=== PATIENT | female | born 1980 | race Caucasian/White ===

== ENCOUNTER 2017-09-16 14:45 | Emergency (ER) | payer BC ==
[~2017-09-16] VITALS: Ht 157.5 cm; Wt 104.5 kg
[2017-09-16 14:47] VITALS: TEMP 98.1
[2017-09-16] MEDS ORDERED: PRENATAL1 TA7 PO (15:06)
[2017-09-16 15:13] LABS: BASO # 0.1 (0.0-0.2); BASO % 0.5 % (0.0-2.0); EOS # 0.1 (0.0-0.7); EOS % 0.7 % (0-4.0); GRAN # 14.5 (1.4-6.5); GRAN % 79.3 % (42.2-75.2); HEMOGLOBIN 12.2 g/dl (12.5-16.0); LYMPH # 2.8 (1.2-3.4); LYMPH % 15.1 % (20.0-51.0); MEAN CELL VOLUME 89 fl (80.0-100.0); MEAN CORPUSCULAR HEMOGLOBIN 30 pg (27.0-31.0); MEAN CORPUSCULAR HGB CONC 33 g/dl (33.0-37.0); MEAN PLATELET VOLUME 12.6 fl (7.4-10.4); MONO # 0.7 (0.1-0.6); PLATELET COUNT 249 K/mm3 (130-400); REDCELL DISTRIBUTION WIDTH-CV 13.2 % (11.5-14.5)
[2017-09-16 15:14] LABS: HEMATOCRIT 36.5 % (37.0-47.0)
[2017-09-16 15:19] LABS: CALCIUM 10.3 mg/dL (8.4-10.2); CREATININE, serum 0.71 mg/dL (0.52-1.25); POTASSIUM 3.8 mmol/L (3.4-5.0)
[2017-09-16 17:59] VITALS: BP 114/71; PULSE 102
== END 2017-09-16 18:00 | disposition home or self-care (01) ==
LOC: COL.ER 14:45
PROVIDERS: Nurse Practitioner
DX: O03.4 Incomplete spontaneous abortion without complication (principal); Z3A.01 Less than 8 weeks gestation of pregnancy; Z88.8 Allergy status to other drugs, medicaments and biological substances; Z98.890 Other specified postprocedural states
CPT/HCPCS: J7030

== ENCOUNTER 2020-12-31 10:53 | Inpatient (IN) | payer OTHER ==
[~2020-12-31] VITALS: Ht 154.9 cm; Wt 99.0 kg
[~2020-12-31 10:53] MED LIST: PRENATAL1 TA7 PO
[2020-12-31 11:53] LABS: BASO % 0.3 % (0.0-2.0); EOS % 0.1 % (0-4.0); GRAN # 5.9 (1.4-6.5); GRAN % 84.5 % (42.2-75.2); HEMOGLOBIN 13.3 g/dl (12.5-16.0); LYMPH # 0.7 (1.2-3.4); LYMPH % 10.5 % (20.0-51.0); MEAN CELL VOLUME 88 fl (80.0-100.0); MEAN CORPUSCULAR HEMOGLOBIN 29 pg (27.0-31.0); MEAN CORPUSCULAR HGB CONC 33 g/dl (33.0-37.0); MEAN PLATELET VOLUME 11.7 fl (7.4-10.4); MONO # 0.2 (0.1-0.6); MONO % 3.3 % (1.7-9.3); PLATELET COUNT 169 K/mm3 (130-400); RED BLOOD COUNT 4.54 M/mm3 (4.10-5.30); REDCELL DISTRIBUTION WIDTH-CV 14.3 % (11.5-14.5)
[2020-12-31 12:05] LABS: ALBUMIN 3.6 gm/dL (3.5-5.0); CALCIUM 8.5 mg/dL (8.4-10.2); CREATININE, serum 0.45 (0.52-1.25); TOTAL PROTEIN 6.8 gm/dL (6.4-8.2)
[2020-12-31 12:07] LABS: POTASSIUM 2.9 mmol/L (3.4-5.0)
[2020-12-31 12:18] LABS: C-REACTIVE PROTEIN 16.8 mg/dL (0.0-0.9)
[2020-12-31 12:43] LABS: COLLECTION METHOD CLEAN CATCH
[2020-12-31 13:16] LABS: PH 6 (5-8); SQUAMOUS EPITHELIAL 0-2 /hpf; URINE APPEARANCE Clear; URINE BACTERIA None Seen /hpf; URINE BILIRUBIN Negative (NEGATIVE); URINE BLOOD 1+ (NEGATIVE); URINE COLOR Yellow; URINE GLUCOSE Negative (NEGATIVE); URINE KETONE 2+ (NEGATIVE); URINE LEUKOCYTE ESTERASE Negative (NEGATIVE); URINE NITRATE Negative (NEGATIVE); URINE PROTEIN(semi-quant) Negative (NEGATIVE); URINE RBC 0-2 /hpf; URINE UROBILINOGEN Negative (NEGATIVE)
[2020-12-31 14:10] VITALS: BP 114/59; PULSE 105; TEMP 99
--- NOTE | 2020-12-31 14:30 | NUR ---
FHR doppler 160-170bpm, +accelerations. Audible and palpable movement. Updated hospitalist who is in room at bedside.
[2020-12-31 15:18] LABS: INR 1.2 (0.8-3.0); PROTHROMBIN TIME 13.2 SECONDS (9.7-12.8)
[2020-12-31 15:21] LABS: PARTIAL THROMBOPLASTIN TIME 31.2 SECONDS (26.0-37.0)
[2020-12-31 16:10] VITALS: BP 113/59; PULSE 102; TEMP 99.2
--- NOTE | 2020-12-31 17:46 | NUR ---
PT ADMITTED TO THE UNIT THIS EVENING. PT AAOX3. NO S/S OF DISTRESS NOTICED. ISOLATION PRECAUTION MAINTAINED. PT ON OXYMASK AT 10L. V/S TAKEN AND STABLE. PT DENIES HAVING ANY PAIN AT THIS TIME. MD, RESPIRATORY THERAPIST, AND OB NURSE AT THE BEDSIDE. HUE AVINA USED FOR ULTRASOUND. PT ORIENTED TO ROOM, CALL-LIGHT, TV, AND VISITING POLICY. PT ENCOURAGED TO ORDER HER SUPPER. CALL-LIGHT IN REACH. BED IN LOW POSITION. WILL CONTINUE TO MONITOR.
--- NOTE | 2020-12-31 21:09 | NUR ---
Assessement is done, alert and oriented. VS are stable. Patient have schedule to went down for CT. Explained the importance of the procedure patient agreed. appliance service technician got her down and got a call from [facility] that Dr. Stoll refused to do the procedure for patient is 19 weeks . Patient refused to do the procedure too. RN called the ARMANDO Mckinley and told her what happened and she is ok with that. Patient has Lovenox schedule at 2100 and she called her OBGYN about it and she said that she will take aspirin instead of the shot. RN called Arlen again and she ordered SCD. Continue to follow.
[2021-01-01] VITALS (489 sets, daily range): BP systolic 98–127; BP diastolic 59–74; PULSE 87–103; TEMP 97.6–98.4; O2SAT 80–98
[2021-01-01 07:24] LABS: HEMATOCRIT 37.8 % (37.0-47.0); HEMOGLOBIN 12.3 g/dl (12.5-16.0); MEAN CELL VOLUME 90 fl (80.0-100.0); MEAN CORPUSCULAR HEMOGLOBIN 29 pg (27.0-31.0); MEAN CORPUSCULAR HGB CONC 33 g/dl (33.0-37.0); MEAN PLATELET VOLUME 12.2 fl (7.4-10.4); PLATELET COUNT 175 K/mm3 (130-400); RED BLOOD COUNT 4.21 M/mm3 (4.10-5.30); REDCELL DISTRIBUTION WIDTH-CV 14.3 % (11.5-14.5)
[2021-01-01 07:37] LABS: CALCIUM 8.5 mg/dL (8.4-10.2); CREATININE, serum 0.45 (0.52-1.25); POTASSIUM 3.6 mmol/L (3.4-5.0)
[2021-01-01 07:59] LABS: BAND 19 % (0-10); LYMPHOCYTE 11 % (20.0-51.0); METAMYELOCYTE 1 % (0-0); NEUTROPHILS 64 % (42.0-75.2); PLATELET ESTIMATE NORMAL (NORMAL)
--- NOTE | 2021-01-01 10:34 | NUR ---
PT RECEIVED RESTING IN BED. PT AWAKE AND ALERT. PT DENIES HAVING PAIN. NO S/S OF DISTRESS NOTICED. O2 AT 10L VIA OXYMASK. ISOLATION PRECAUTION MAINTAINED. PT ATE HER MEAL. V/S SIGN TAKEN, PT OXYGEN LEVEL FLUCTUATES BETWEEN 89-91%, SPOKE TO RESPIRATORY THERAPIST AND PT WILL BE SWITCHED FROM OXYMASK TO AIRVO. ORDERED MEDICATIONS REVIEWED WITH PT, PT REFUSED TO TAKE THE LOVENOX. RISK AND BENEFITS OF THE LOVENOX REVIEWED WITH THE PT AND SHE STILL DECLINES PER THE ADVISE OF HER OBGYN. SCD'S ON ORDERED. PT DENIES ANY PELVIC PAIN, PRESSURE, OR DISCOMFORT. PT DENIES HAVING AND VAGINAL DISCHARGE AT THIS TIME. CORNETIST GOING TO SEE PT AND STATES HE WOULD LIKE THE WHITEPRINTING MACHINE OPERATOR OBGYN TO SEE THE PT TODAY. HOSPITALIST MADE AWARE AND OBGYN WHITEPRINTING MACHINE OPERATOR WAS NOTIFIED. PT PENDING TRANSFER TO INTENSIVE CARE UNIT DUE TO HER INCREASE NEED FOR OXYGEN. COMFOR MEASURES IN PLACE. CALL-LIGHT IN REACH. BED IN LOW POSITION. WILL CONTINUE TO MONITOR.
--- NOTE | 2021-01-01 11:41 | NUR ---
REPORT GIVEN TO NURSE PT WILL BE TRANSFERRING TO ICU. PHARMACIST AT THE BEDSIDE REVIEWING MEDICATIONS WITH THE PT. PT IS NOW OK WITH TAKING THE LOVENOX. LOVENOX ADMINISTERED.
--- NOTE | 2021-01-01 14:00 | NUR ---
Antibiotics ordered for this pt. Pt. refusing to take antibiotics. Pt. educated on importance of antibiotics, no change in pt.'s decision at this time.
--- NOTE | 2021-01-01 17:45 | NUR ---
Pt. refusing IV Rocephin and PO Azithromycin antibiotics. Dr. Morrissey notified via telephone. Dr. Morrissey requesting this RN to educate pt. again about the importance of antibiotics during her hospitalization. Pt. continues not to want to take the abx. Dr. Morrissey attempted to be called back, no answer.
[2021-01-02] VITALS (469 sets, daily range): BP systolic 96–120; BP diastolic 52–70; PULSE 70–108; TEMP 97.8–98.6; O2SAT 82–99
[2021-01-02 03:44] LABS: ARTERIAL BLD GAS O2 SATURATION 95.1 % (92-100); ARTERIAL BLD GAS TCO2 CT 18.8; ARTERIAL BLOOD GAS HCO3 17.9 meq/L (22-26); ARTERIAL BLOOD GAS PCO2 28.1 mmHg (35-45); ARTERIAL BLOOD GAS PO2 76.9 mmHg (80-100); ARTERIAL BLOOD GAS pH 7.42 (7.35-7.45)
--- NOTE | 2021-01-02 06:46 | NUR ---
THIS NURSE SPOKE TO PT CONCERNING BIPAP RECOMMENDATION DUE TO ABG RESULTS. PT IS NOT OPPOSED TO IT RIGHT NOW BUT WOULD LIKE TIME TO MAKE A DECISION. PT ALSO EXPRESSED TO NURSE THAT SHE WOULD LIKE TO COMMENCE ANTIBIOTICS BUT WOULD LIKE TO SEE IF SHE CAN RECEIVE A PROBIOTIC WITH AFOREMENTIONED. THIS NURSE WILL RELAY TO ONCOMING SHIFT. PT ON AIRVO 60L FIO2 92 PERCENT. PT REMAINS A/OX4, DENIES PAIN,V,D. PT DOES REPORT NAUSEA. MEDICAITON ADMINISTERED ORDERED. CALL LIGHT WITHIN REACH.
--- NOTE | 2021-01-02 16:00 | NUR ---
Pt arrived from ICU to room 306, she is A/O x4. She denies any pain. States "I'm Ok" when asked about SOB. Currently on Airvo, left lung CTA, RLL fine crackles and RUL clear. Wet cough present. No N/V. Good appetite. Denies edema. POC discussed with patient, no further needs at this time.
--- NOTE | 2021-01-02 21:46 | NUR ---
Assessment is done, alert and oriented. VS are stable, pt is independent in the room She is on 60L at 92% airvo. denies pain or SOB. Requesting food to eat. She said that she's been calling the dietary but its 1930 already. RN provided the sandwich tray instead. No further complain noted. Lovenox was given. Call light is within reach will continue to monitor.
[2021-01-03 04:17] VITALS: BP 95/58; PULSE 91; TEMP 97.7
[2021-01-03 07:54] VITALS: BP 115/76; PULSE 82; TEMP 98.1
--- NOTE | 2021-01-03 09:13 | NUR ---
The patient is COVID positive. SW contacted the patient's room phone to discuss discharge plan. The patient lives in [place] with her , Jeancarlos (ph#[phone]), and their six children. She is currently 18 weeks . She reports independence with ADLs and does not have any DME. The patient's PCP is Dr. David Giraldo and she receives her medications from [facility]. She reports no difficulties obtaining her meds. The patient does not have a DPOA-HC and she was not interested in completing while here. The patient plans to return home with her family upon discharge. She is currently requiring oxygen. SW to continue to monitor. *Discharge plan: home with family*
[2021-01-03 12:43] VITALS: BP 103/56; PULSE 88; TEMP 98.2
[2021-01-03 16:51] VITALS: BP 97/57; PULSE 80; TEMP 97.9
--- NOTE | 2021-01-03 18:30 | NUR ---
Doppler done on patient. heart rate 136.
--- NOTE | 2021-01-03 19:28 | NUR ---
Pt had uneventful day, was titrated down slightly on Airvo. Able to shower this am. Denies any pain. Reports she is fine when asked about SOB. L&D nurse up to assess heart tones. Pt has no needs at this time. Call light within reach.
[2021-01-03 19:45] VITALS: BP 112/51; PULSE 72; TEMP 98
--- NOTE | 2021-01-03 23:17 | NUR ---
ALERT AND OX4. 19 WEEKS . PLEASENT WITH C/O SOA PRIOR TO AERVO DOES NOT COMPLAIN OR SOA CURRENTLY. PM MEDS GIVEN ALONG W VTE- LOVENOX. POC DISCUSSED. CALL LIGHT WI REACH. NEEDS MET.
[2021-01-03 23:39] VITALS: BP 104/55; PULSE 70; TEMP 98
[2021-01-04 04:40] VITALS: BP 109/52; PULSE 80; TEMP 98.1
--- NOTE | 2021-01-04 05:28 | NUR ---
SLEPT THROUGH THE NIGHT WITHOUT INCIDENT. NEEDS MET.
[2021-01-04 08:30] VITALS: BP 96/51; PULSE 78; TEMP 98.1
--- NOTE | 2021-01-04 08:56 | NUR ---
PT DENIES ANY PAIN, STATES THAT IT IS MUCH EASIER TO BREATH PT'S O2 SATS AT 91% WITH 7L HFNC. PT LUNG SOUNDS ARE CLEAR BUT DIMINISHED IN ALL LOBES. NO OTHER CONCERNS.
[2021-01-04 12:34] VITALS: BP 125/70; PULSE 91; TEMP 98.1
[2021-01-04 16:31] VITALS: BP 113/63; PULSE 85; TEMP 98.1
--- NOTE | 2021-01-04 18:59 | NUR ---
PT HAS BEEN TITRATED DOWN TO 2L NC, HOWEVER WITH AMBULATION DOES DESAT TO 86%, BUT RECOVERS VERY QUICKLY TO RETURN TO 91-92%. PT IS ANXIOUS TO GET OUT OF THE HOSPITAL. THERE ARE NO OTHER CONCERNS WITH THIS PATIENT. REPORT HAS BEEN GIVEN TO AUREA GILLESPIE.
[2021-01-04 20:02] VITALS: BP 118/60; PULSE 88; TEMP 98.1
--- NOTE | 2021-01-04 23:02 | NUR ---
ALERT AND OX4. STATES FEELING MUCH BETTER. DENIES SOA NOW W AMBULATION HOWEVER O2 ON 2LITERS HOOVERING AROUND 90-91, BUMPED UP TO 3L TO GET TO 94-95%. LOVENOX GIVEN FOR VTE. POC DISCUSSED. PT ANTICIPATES AND IS HOPEFUL FOR DC TOMORROW IT IS HER KIDS BDAY. NEEDS MET.
[2021-01-05 00:40] VITALS: BP 111/72; PULSE 77; TEMP 98.2
--- NOTE | 2021-01-05 01:15 | NUR ---
PT BELONGINGS BROUGHT UP BY FAMILY. ZOFRAN FOR NAUSEA AND PT O2 BUMPED UP TO 5L SATING AT 87% N/C. BARRIER CRM FOR SORE BOTTOM AFTER LOSE STOOL.
[2021-01-05 04:48] VITALS: BP 125/60; PULSE 61; TEMP 97.9
--- NOTE | 2021-01-05 05:39 | NUR ---
RESTED AFTER TX W ZOFRAN FOR NAUSEA. O2 BETTER AFTER SETTLED DOWN WELL. ON 2 LITERS AFTER RECOVERED. HAD TAKEN O2 OFF WHEN NAUSEATED AND HAVING NASAL DRAINAGE. NEEDS MET.
[2021-01-05 07:25] LABS: HEMOGLOBIN 11.1 g/dl (12.5-16.0); MEAN CELL VOLUME 90 fl (80.0-100.0); MEAN CORPUSCULAR HEMOGLOBIN 29 pg (27.0-31.0); MEAN CORPUSCULAR HGB CONC 32 g/dl (33.0-37.0); MEAN PLATELET VOLUME 11.8 fl (7.4-10.4); PLATELET COUNT 245 K/mm3 (130-400); RED BLOOD COUNT 3.82 M/mm3 (4.10-5.30); REDCELL DISTRIBUTION WIDTH-CV 14.1 % (11.5-14.5)
[2021-01-05 07:26] LABS: HEMATOCRIT 34.3 % (37.0-47.0)
[2021-01-05 07:46] LABS: CALCIUM 8.4 mg/dL (8.4-10.2); CREATININE, serum 0.46 (0.52-1.25); MAGNESIUM 1.7 mg/dL (1.6-2.3); POTASSIUM 3.3 mmol/L (3.4-5.0)
[2021-01-05 08:25] LABS: BAND 2 % (0-10); LYMPHOCYTE 22 % (20.0-51.0); METAMYELOCYTE 4 % (0-0); NEUTROPHILS 70 % (42.0-75.2); PLATELET ESTIMATE NORMAL (NORMAL)
[2021-01-05 08:26] VITALS: BP 117/66; PULSE 88; TEMP 98
[2021-01-05 08:27] LABS: ANISOCYTOSIS 1+; MICROCYTOSIS 1+
[2021-01-05] MEDS ORDERED: DECADRON6 MG PO (09:12)
[2021-01-05] MEDS ORDERED: RT Albuterol HFA MDI IH (09:13)
[2021-01-05] MEDS ORDERED: ZOFRAN 4MG T4 MG/TAB PO (09:13)
[2021-01-05] MEDS ORDERED: ZITHROMAX 250M250 MG PO (09:14)
[2021-01-05] MEDS ORDERED: PROAIR HFA0.09 MG/AC IH (09:15)
[2021-01-05] MEDS ORDERED: OXYGEN (09:16)
--- NOTE | 2021-01-05 09:48 | NUR ---
RT notified DEON that the patient qualified for 1 liter of oxygen. SW contacted the patient to notify and informed her of the different DME companies. The patient was agreeable with getting the oxygen from [email or web address]. She states that since she lives in [place], it would be easier for [facility] [employer] to just deliver all of the equipment to the hospital. The patient had no questions or concerns for SW about returning home with her family. DEON contacted and faxed the patient's oxygen order to Santa at [email or web address]. Santa reports that their interstate bus driver will deliver the oxygen and equipment to the patient's room mid afternoon. DEON updated the patient's RN on the above above. No additional needs at this time.
--- NOTE | 2021-01-05 13:12 | NUR ---
PT IS READY FOR DISCHARGE, JUST WAITING FOR OXYGEN TO ARRIVE. NO OTHER CONCERNS. PATIENT IS SITTING IN THE WINDOW BENCH DOING HER NAILS.
== END 2021-01-05 14:35 | disposition home or self-care (01) | DRG 831 ==
LOC: COL.ER 10:53 → MEDICAL 12:30 → ICU 01-01 11:32 → MEDICAL 01-01 11:32 → ICU 01-02 12:57 → MEDICAL 01-02 14:47
PROVIDERS: Family Medicine; Internal Medicine; Internal Medicine Critical Care Medicine; ADMIT Internal Medicine
PROC: XW033E5 Introduction of Remdesivir Anti-infective into Peripheral Vein, Percutaneous Approach, New Technology Group 5 (ICD-10-PCS; principal; 2021-01-01)
DX: O98.512 Other viral diseases complicating pregnancy, second trimester (principal); U07.1 COVID-19; J12.82 Pneumonia due to coronavirus disease 2019; J96.01 Acute respiratory failure with hypoxia; Z3A.18 18 weeks gestation of pregnancy; J45.909 Unspecified asthma, uncomplicated
CPT/HCPCS: 99223-AI; 99232-AI; 99239; A9284; J0696; J1650; J2405; J7050; J7120; J8540

== ENCOUNTER → 2021-01-13 | Outpatient (CLI) | payer OTHER ==
[~2021-01-13] MED LIST changes: +DECADRON6 MG PO; +OXYGEN; +PROAIR HFA0.09 MG/AC IH; +RT Albuterol HFA MDI IH; +ZITHROMAX 250M250 MG PO; +ZOFRAN 4MG T4 MG/TAB PO
[2021-01-13 16:35] LABS: CALCIUM 8.9 mg/dL (8.4-10.2); CREATININE, serum 0.66 (0.52-1.25); MAGNESIUM 1.5 mg/dL (1.6-2.3)
== END ==
LOC: COL.LAB 15:35
PROVIDERS: Internal Medicine
DX: U07.1 COVID-19 (principal); J12.82 Pneumonia due to coronavirus disease 2019